=== PATIENT | female | born 1995 | race Caucasian/White ===

== ENCOUNTER 2022-02-26 16:51 | Emergency (ER) | payer OTHER ==
[2022-02-26] MEDS ORDERED: PROVENTIL HFA6.7 GM INH (18:41)
== END 2022-02-26 19:03 | disposition home or self-care (01) ==
LOC: ER1 16:51
DX: R05.9 Cough, unspecified (principal); Z79.82 Long term (current) use of aspirin; Z20.822 Contact with and (suspected) exposure to COVID-19
CPT/HCPCS: 99283; U0002